=== PATIENT | female | born 1970 | race African-American/Black ===

== ENCOUNTER 2021-01-04 19:34 | Emergency (ER) | payer BC, OTHER ==
[2021-01-04 19:43] VITALS: BMI 27.4
[2021-01-04] MEDS ORDERED: IBUPROFEN 600 MG TABLET (FP) PO ONE ×2 (20:26→20:31)
[2021-01-04] MEDS ORDERED: amLODIPine BESYLATE 5 MG TABLET (FP) ONE (20:29)
[2021-01-04] MEDS ORDERED: NIFEdipine 10 MG CAPSULE (FP) PO ONE (20:33)
[2021-01-04] MEDS ORDERED: LOSARTAN POTASSIUM 50 MG TABLET PO ONE (20:33)
[2021-01-04 20:49] VITALS: BP 154/96; PULSE 78; TEMP 98.9
[2021-01-04] MEDS ORDERED: amLODIPine BESYLATE 5 MG TABLET (FP) PO ONE (20:57)
== END 2021-01-04 21:20 | disposition home or self-care (01) ==
LOC: FER 19:34
DX: B34.9 Viral infection, unspecified (principal); I10 Essential (primary) hypertension
CPT/HCPCS: 87804; 93005; 99284-25; C9803; U0003; U0005

== ENCOUNTER 2021-09-18 22:21 | Emergency (ER) | payer BC ==
[2021-09-18 22:34] VITALS: BP 158/92; PULSE 76; TEMP 97.8; BMI 26.9
[2021-09-18 23:12] LABS: HEMATOCRIT 33.3 % (32.4-45.2); HEMOGLOBIN 11.9 G/dL (10.7-15.3); MCH 26.6 pg (25.7-33.7); MCHC 35.6 g/dl (32.0-36.0); MEAN CELL VOLUME 74.8 fl (80-96); MEAN PLT VOLUME 8.8 fl (7.5-11.1); PLATELET COUNT 166.1 10^3/uL (134-434); RBC 4.45 10^6/uL (3.60-5.2); RDW 16.5 % (11.6-15.6)
[2021-09-18 23:32] LABS: ALBUMIN 4.1 g/dl (3.4-5.0); BILIRUBIN,TOTAL 0.5 mg/dl (0.2-1); CALCIUM 9.4 mg/dl (8.5-10); CREATININE 1.1 mg/dl (0.55-1.3); MAGNESIUM 1.8 mg/dL (1.8-2.4)
== END 2021-09-18 23:51 | disposition home or self-care (01) ==
LOC: FER 22:21
DX: R00.2 Palpitations (principal)
CPT/HCPCS: 36415; 80053; 82550; 83735; 84484; 85025; 93005; 99284-25

== ENCOUNTER 2023-04-16 07:42 | Emergency (ER) | payer BC ==
[2023-04-16 07:53] VITALS: BP 166/98; PULSE 78; RESP 18; TEMP 98.9; BMI 27.4
[2023-04-16] MEDS ORDERED: LIDOCAINE 5% TOPICAL PATCH TP ONE (08:01)
[2023-04-16] MEDS ORDERED: IBUPROFEN 600 MG TABLET (FP) PO ONE (08:01)
[2023-04-16] MEDS ORDERED: ACETAMINOPHEN 325 MG TABLET (FP) PO ONE (08:01)
[2023-04-16] MEDS ORDERED: IBUPROFEN 400 MG TABLET (FP) PO ONE (08:35)
[2023-04-16] MEDS ORDERED: LIDOCAINE 5% TOPICAL PATCH ONE (08:36)
[2023-04-16] MEDS ORDERED: ACETAMINOPHEN 325 MG TABLET (FP) ONE (08:36)
[2023-04-16] MEDS ORDERED: LIDOCAINE PATCH REMOVAL MC SCH (22:00)
== END 2023-04-16 10:02 | disposition home or self-care (01) ==
LOC: FER 07:42
DX: M25.561 Pain in right knee (principal); M25.551 Pain in right hip; M79.604 Pain in right leg
CPT/HCPCS: 73502-TC-RT-FY; 73564-TC-RT-FY; 93971-TC; 99284-25